=== PATIENT | male | born 1980 | race Caucasian/White ===

== ENCOUNTER 2021-03-30 01:46 | Emergency (ER) | payer SELFPAY ==
[2021-03-30 01:55] VITALS: BP 113/75; PULSE 80; BMI 36.9
[2021-03-30] MEDS ORDERED: ONDANSETRON *ODT* 4 MG TABLET SL ONE (02:07)
== END 2021-03-30 03:32 | disposition home or self-care (01) ==
LOC: FER 01:46
DX: F10.920 Alcohol use, unspecified with intoxication, uncomplicated (principal)
CPT/HCPCS: 99283-25